=== PATIENT | female | born 1985 | race Caucasian/White ===

== ENCOUNTER → 2017-02-20 | Outpatient (CLI) | payer BC | LOC: COL.CARD 07:43 | DX: I49.9 Cardiac arrhythmia, unspecified (principal) ==

== ENCOUNTER → 2017-06-19 | Outpatient (CLI) | payer BC | LOC: MC.RAD 06-12 09:45 | DX: N63.31 Unspecified lump in axillary tail of the right breast (principal); Z33.1 Pregnant state, incidental ==

== ENCOUNTER 2017-08-26 10:03 | Inpatient (IN) | payer BC ==
[~2017-08-26] VITALS: Ht 162.6 cm; Wt 84.5 kg
[2017-09-19] VITALS (29 sets, daily range): BP systolic 91–131; BP diastolic 51–81; PULSE 41–106; TEMP 97.4–98
[2017-09-19] MEDS ORDERED: CONCEPT DHA1 CAP PO (15:12)
[2017-09-19 15:54] LABS: BASO % 0.1 % (0.0-2.0); EOS # 0.1 (0.0-0.7); EOS % 0.6 % (0-4.0); GRAN % 70.8 % (42.2-75.2); MEAN CELL VOLUME 88 fl (80.0-100.0); MEAN CORPUSCULAR HGB CONC 35 g/dl (33.0-37.0); MEAN PLATELET VOLUME 10.9 fl (7.4-10.4); MONO # 0.8 (0.1-0.6); MONO % 7.8 % (1.7-9.3); PLATELET COUNT 232 K/mm3 (130-400); RED BLOOD COUNT 3.82 M/mm3 (4.10-5.30); REDCELL DISTRIBUTION WIDTH-CV 12.5 % (11.5-14.5)
[2017-09-19 15:56] LABS: HEMATOCRIT 33.7 % (37.0-47.0); HEMOGLOBIN 11.9 g/dl (12.5-16.0); MEAN CORPUSCULAR HEMOGLOBIN 31 pg (27.0-31.0)
[2017-09-20 00:30] VITALS: BP 118/62; PULSE 94; TEMP 98.1
[2017-09-20 04:30] VITALS: BP 104/65; PULSE 73; TEMP 97.8
[2017-09-20 07:20] VITALS: BP 113/68; PULSE 75; TEMP 97.4
[2017-09-20] MEDS ORDERED: IBU600 MG PO (10:32)
[2017-09-20] MEDS ORDERED: PERCOCET 325 MG1 TA2 PO (10:33)
[2017-09-20 12:50] VITALS: BP 119/60; PULSE 98
[2017-09-20 16:00] VITALS: BP 125/50; PULSE 44; TEMP 97.6
[2017-09-20 20:30] VITALS: BP 113/65; PULSE 72; TEMP 97.3
[2017-09-21 07:50] VITALS: BP 104/57; PULSE 65; TEMP 97.4
== END 2017-09-21 16:00 | disposition home or self-care (01) | DRG 774 ==
LOC: LDRO 10:03 → EDSTATUS 14:44 → LDR 09-19 14:45 → OB 09-20
PROVIDERS: Obstetrics & Gynecology
PROC: 10E0XZZ Delivery of Products of Conception, External Approach (ICD-10-PCS; principal; 2017-09-19)
PROC: 0KQM0ZZ Repair Perineum Muscle, Open Approach (ICD-10-PCS; 2017-09-19)
DX: O70.1 Second degree perineal laceration during delivery (principal); Z37.0 Single live birth; O75.4 Other complications of obstetric surgery and procedures; Z3A.39 39 weeks gestation of pregnancy; R00.8 Other abnormalities of heart beat; Z22.330 Carrier of Group B streptococcus
CPT/HCPCS: J2405; J2540; J2590; J2795; J7120

== ENCOUNTER → 2018-11-16 | Outpatient (CLI) | payer BC ==
[~2018-11-16] MED LIST: CONCEPT DHA1 CAP PO; IBU600 MG PO; PERCOCET 325 MG1 TA2 PO
== END ==
LOC: COL.CARD 07:59
DX: I49.9 Cardiac arrhythmia, unspecified (principal)

== ENCOUNTER → 2019-01-08 | Outpatient (CLI) | payer BC | LOC: COL.CARD 11:15 | DX: R00.2 Palpitations (principal); R94.31 Abnormal electrocardiogram [ECG] [EKG]; I49.3 Ventricular premature depolarization ==

== ENCOUNTER → 2019-03-11 | Outpatient (CLI) | payer BC | LOC: COL.CARD 03-05 11:30 | DX: I49.3 Ventricular premature depolarization (principal); R06.09 Other forms of dyspnea ==

== ENCOUNTER → 2019-05-04 | Outpatient (CLI) | payer BC | LOC: COL.VAS 10:29 | DX: I49.9 Cardiac arrhythmia, unspecified (principal) ==

== ENCOUNTER → 2021-12-19 | Outpatient (CLI) | payer BC | LOC: COL.CARD 12-18 11:30 | DX: R00.9 Unspecified abnormalities of heart beat (principal) ==

== ENCOUNTER → 2023-02-06 | Outpatient (CLI) | payer BC | LOC: MC.RAD 09:50 | DX: N60.11 Diffuse cystic mastopathy of right breast (principal) ==

== ENCOUNTER → 2023-06-05 | Outpatient (CLI) | payer BC | LOC: COL.RAD 12:09 | DX: R59.9 Enlarged lymph nodes, unspecified (principal); M25.552 Pain in left hip ==